=== PATIENT | female | born 1985 | race Caucasian/White ===

== ENCOUNTER → 2018-11-15 | Outpatient (CLI) | payer BC ==
[~2018-11-15] MED LIST: BCP; PRD5T PO
== END ==
LOC: LAB 10:48
PROVIDERS: ATTEND Nurse Practitioner Family
DX: R07.9 Chest pain, unspecified (principal)
CPT/HCPCS: 36415; 84484

== ENCOUNTER 2019-04-30 10:01 | Day surgery (SDC) | payer BC ==
[~2019-04-30] VITALS: Ht 149.9 cm; Wt 73.6 kg
[2019-04-30] VITALS (10 sets, daily range): BP systolic 91–108; BP diastolic 45–73
--- OUTSIDE RECORDS SUMMARY | 2019-04-30 10:16 | XMS REPORT | Continuity of Care Document ---
Author Organization Unknown Address Unknown Phone Unavailable Allergies Active Description Code Type Severity Reaction Onset Reported/Identified Relationship to Patient Clinical Status Yes azithromycin [id number] Drug Allergy Mild NAUSEA/DIARRHEA 07/25/2010 Medications There is no data. Problems Date Dx Coded Attending Type Code Diagnosis Diagnosed By 11/29/2018 VINCENT STERLING APRN Ot R07.9 CHEST PAIN, UNSPECIFIED 12/06/2018 VINCENT STERLING APRN Ot R07.9 CHEST PAIN, UNSPECIFIED 04/17/2019 VINCENT STERLING APRN Ot R07.9 CHEST PAIN, UNSPECIFIED 04/17/2019 VINCENT STERLING APRN Ot R07.9 CHEST PAIN, UNSPECIFIED Procedures There is no data. Results Test Result Range Serum or plasma troponin i.cardiac measu rement (mass/volume) - 11/15/18 11:09 Serum or plasma troponin i.cardiac measurement (mass/v olume) < ng/mL <0.028 Encounters ACCT No. Visit Date/Time Discharge Status Pt. Type Provider Facility Loc./Unit Complaint [id number] 10/20/2018 07:41:46 10/20/2018 23:59:5 9 [facility] Outpatient [id number] 11/15/2018 10:48:00 019 23:59:59 [facility] Outpatient VINCENT STERLING APRN Via [facility] LAB CHEST PAIN
--- OUTSIDE RECORDS SUMMARY | 2019-04-30 10:16 | XMS REPORT | CCD ---
Author Author Zuleima Triplett Organization Martine Baig MD, [facility] Address [address] [place] [address] Phone Care Team Providers Care Residential Solar Sales Consultant Name Role Phone PP Unavailable CCM Unavailable Summary Purpose Interface Exchange Insurance Providers Payer name Policy type / Coverage type Covered democrat ID Effective Begin Date Effective End Date [facility] Insurance [id number] Unknown Unk nown Family history Father Diagnosis Age At Onset Alcoholism Unknown Hypertension Unknown Hyperlipidemia Unknown Sister Diagnosis Age At Onset Depression Unknown kidney disease Unknown Social History Social History Element Codes Description Effective Dates Marital status Unknown M arrjose amie 10/20/2018 Number of children Unknown 1 10/20/2018 Employment Unknown Mauro gore employed endodontic assistant 10/20/[address]: 05191005 Current every day smoker 10/20/2018 Number of years using tobacco Unknown 10 - 20 10/20/2018 Number of cigarettes/day Unknown 20 (One Pack) 10/20/[address]: 162277 Currently drinks alcohol 10/20/2018 Frequency of drinks SNOMED CT: 292924833 1-4 drinks per week 10/20/2018 Allergies, Adverse Reactions, Alerts Substance Reaction Codes Entered Date Inactivated Date Status NO KNOWN DRUG ALLERGIES Unknown 10/20/2018 No Inactive Date Active Past Medical History Illness Codes Condition Status Onset Date Resolved Date Acute upper respirat ory infection, unspecified ICD-9: 465.9 ICD-10: J06.9 Active 10/20/2018 Unknown Dysuria ICD-9: 788.1 ICD-10: R30.0 Active 10/20/2018 Unknown Personal history of gestational diabetes ICD-9: V12.21 ICD-10: Z86.32 Active 10/20/2018 Unknown Rash and other nonsp ecific skin eruption ICD-9: 782.1 ICD-10: R21 Active 10/20/2018 Unknown Problems Condition Codes Effectiv e Dates Condition Status Acute upper respirat ory infection, unspecified ICD-9: 465.9 ICD-10: J06.9 10/20/2018 Active Dysuria ICD-9: 788.1 ICD-10: R30.0 10/20/2018 Active Personal history of gestational diabetes ICD-9: V12.21 ICD-10: Z86.32 10/20/2018 Active Rash and other nonsp ecific skin eruption ICD-9: 782.1 ICD-10: R21 10/20/2018 Active Medications Medication Codes Instruc tions Start Date Stop Date Sta tus Fill Instructions prednisone 20 mg tablet RxNorm: 096578 2 Tablet(s) PO daily 10/23/2018 10/27/2018 Active prednisone 20 mg tablet RxNorm: 016543 2 Tablet(s) PO daily 10/23/2018 10/22/2018 Inactive Keflex 500 mg capsule RxNorm: 590337 1 Capsule(s) PO TID 10/20/2018 10/26/2018 Active betamethasone diprop ionate 0.05 % topical cream RxNorm: 565569 1 Application TOP BID 10/20/2018 11/02/2018 Ac tive Medication Administered No Medication Administered data Immunizations No Immunization data Assessments Condition Codes Effectiv e Dates Dysuria ICD-10: R30.0 ICD-9: 788.1 10/20/2018 Personal history of gestational diabetes ICD-10: Z86.32 ICD-9: V12.21 10/20/2018 Rash and other nonspecific skin eruption ICD-10: R21 ICD-9: 782.1 10/20/2018 Acute upper respiratory infection, unspecified ICD-10: J06.9 ICD-9: 465.9 10/20/2018 Reason For Visit Reason For Visit Effective Dates Notes dysuria 10/20/2018 Results Observation Observation Code Item Item Code Result Date CULTURE, URINE M100 URIN E CULTURE See Note 10/23/2018 Comp Metabolic Lir198 NA 138 mEq/L 10/20/2018 Comp Metabolic Aii376 K 4.3 mEq/L 10/20/2018 Comp Metabolic Pqm130 CL 104 mEq/L 10/20/2018 Comp Metabolic Mcb795 CO2 29.0 mEq/L 10/20/2018 Comp Metabolic Zgy439 AN ION GAP 9 10/20/2018 Comp Metabolic Mlp959 GL UCOSE 88 mg/dL 10/20/2018 Comp Metabolic Zys459 Cr eat 0.7 mg/dL 10/20/2018 Comp Metabolic Ekd727 eG FR 108 ml/min/1.73m2 10/08 Comp Metabolic Blu795 BUN 14 mg/dL 10/20/2018 Comp Metabolic Jgg709 B/ C Ratio 21.2 Ratio 10/20/2018 Comp Metabolic Qxz626 CA LCIUM 9.1 mg/dL 10/20/2018 Comp Metabolic Hmq340 AL K PHOS 57 U/L 10/20/2018 Comp Metabolic Vea333 T(SGOT) 12 U/L 10/20/2018 Comp Metabolic Nss419 AL T(SGPT) 13 U/L 10/20/2018 Comp Metabolic Bvn347 BI LI T 0.4 mg/dL 10/20/2018 Comp Metabolic Zfq871 AL BUMIN 4.3 g/dL 10/20/2018 Comp Metabolic Orn591 TP RO 6.5 g/dL 10/20/2018 Comp Metabolic Jhj417 GL OB 2.2 g/dL 10/20/2018 Comp Metabolic Mmj484 A/ G Ratio 2.0 Ratio 10/20/2018 Comp Metabolic Uuw787 Os mo 276 mOsmo 10/20/2018 %Hba1C Tnv781 % HbA1c 03410-8 5.0 % 10/20/2018 %Hba1C Etd870 Gluc Ave 97 mg/dL 10/20/2018 Tsh Ord6 TSH (3rd IS) 0.84 uIU/mL 10/20/2018 Cbc With Differential Ord2 WBC 12.08 K/ul 10/20/2018 Cbc With Differential Ord2 RBC 4.88 M/ul 10/20/2018 Cbc With Differential Ord2 HGB 15.6 g/dl 10/20/2018 Cbc With Differential Ord2 HCT 45.0 % 10/20/2018 Cbc With Differential Ord2 Neut% 71.9 % 10/20/2018 Cbc With Differential Ord2 MCV 92.2 fl 10/20/2018 Cbc With Differential Ord2 Lymph% 18.3 % 10/20/2018 Cbc With Differential Ord2 MCH 32.0 pg 10/20/2018 Cbc With Differential Ord2 [place]% 8.1 % 10/20/2018 Cbc With Differential Ord2 MCHC 34.7 pg 10/20/2018 Cbc With Differential Ord2 Eos% 1.4 % 10/20/2018 Cbc With Differential Ord2 PLT 351 K/ul 10/20/2018 Cbc With Differential Ord2 Baso% 0.3 % 10/20/2018 Cbc With Differential Ord2 RDW 12.6 % 10/20/2018 Cbc With Differential Ord2 Neut ABS# 8.68 K/ul 10/20/2018 Cbc With Differential Ord2 Lymph ABS# 2.21 K/ul 10/20/2018 Cbc With Differential Ord2 [place] ABS# 1.0 K/ul 10/20/2018 Cbc With Differential Ord2 Eos ABS# 0.2 K/ul 10/20/2018 Cbc With Differential Ord2 Baso ABS# 0.0 K/ul 10/20/2018 Lipid Ord30 CHOL 105 mg/dL 10/20/2018 Lipid Ord30 HDL 41.0 mg/dl 10/20/2018 Lipid Ord30 TRIG 52 mg/dL 10/20/2018 Lipid Ord30 LDL 54 mg/dL 10/20/2018 Lipid Ord30 C/HDL 2.6 Ratio 10/20/2018 Review of Systems System Result Effective Dates Constitutional recent illness 10/20/2018 Constitutional No anorexia 10/20/2018 Constitutional No night sweats 10/20/2018 Constitutional No chills 10/20/2018 Constitutional No malaise 10/20/2018 Constitutional No weight loss 10/20/2018 Constitutional No weight gain 10/20/2018 Constitutional insomnia 10/20/2018 Constitutional No fever 10/20/2018 Constitutional No fatigue 10/20/2018 Constitutional No diaphoresis 10/20/2018 Eyes No eye discharge Eyes No eye erythema Ears/Nose/Throat/Neck nasal allergies 10/20/2018 Ears/Nose/Throat/Neck nasal discharge 10/20/2018 Ears/Nose/Throat/Neck No dizziness 10/20/2018 Ears/Nose/Throat/Neck headache 10/20/2018 Ears/Nose/Throat/Neck No otalgia 10/20/2018 Ears/Nose/Throat/Neck sinus congestion 10/20/2018 Cardiovascular No chest pain/pressure 10/20/2018 Cardiovascular No dyspnea 10/20/2018 Cardiovascular No edema 10/20/2018 Respiratory No productive sputum 10/20/2018 Respiratory cough 2018 Gastrointestinal No abdominal pain 10/20/2018 Gastrointestinal No constipation 10/20/2018 Gastrointestinal No diarrhea 10/20/2018 Genitourinary/Nephrology No dysuria 10/20/2018 Musculoskeletal No joint complaint 10/20/2018 Dermatologic rash 2018 Neurologic No alteration of consciousness 10/20/2018 Psychiatric No depression 10/20/2018 Psychiatric anxiety 10/08 Endocrine dry or coarse skin 10/20/2018 Endocrine polydipsia Endocrine polyuria 10/20 Physical Exam Exam Name System Name It em Name Status Result Effective Dates Notes Full Exam - General 1995 Constitutional general appearance Overall: well developed 10/20/2018 None Full Exam - General 1995 Constitutional general appearance Overall: in no acute distress 10/20/2018 None Full Exam - General 1995 Constitutional general appearance Overall: well nourished 10/20/2018 None Full Exam - General 1995 Eyes conjunctiva/eyelids Overall: conjunctiva clear 10/20/2018 None Full Exam - General 1995 Ears/Nose/Throat otoscopic exam Overall: external auditory canals clear 10/20/2018 None Full Exam - General 1995 Ears/Nose/Throat otoscopic exam Overall: tympanic membranes clear 10/20/2018 None Full Exam - General 1995 Ears/Nose/Throat oral cavity/pharynx/larynx Overall: oral mucosa clear 10/20/2018 None Full Exam - General 1995 Ears/Nose/Throat internal nose Sinus tenderness: left maxillary 10/20/2018 None Full Exam - General 1995 Ears/Nose/Throat internal nose Sinus tenderness: right maxillary 10/20/2018 None Full Exam - General 1994 Respiratory respiratory effort/rhythm Overall: no retractions 10/20/2018 None Full Exam - General 1994 Respiratory respiratory effort/rhythm Overall: normal rate 10/20/2018 None Full Exam - General 1994 Respiratory auscultation Overall: breath sounds clear bilaterally 10/20/2018 None Full Exam - General 1994 Cardiovascular auscultation of heart Overall: regular rate 10/20/2018 None Full Exam - General 1994 Cardiovascular auscultation of heart Overall: normal heart sounds 10/20/2018 None Full Exam - General 1994 Cardiovascular auscultation of heart Overall: no murmurs 10/20/2018 None Full Exam - General 1994 Abdomen abdominal exam Overall: no tenderness 10/20/2018 None Full Exam - General 1994 Abdomen abdominal exam Overall: normal bowel sounds 10/20/2018 None Full Exam - General 1994 Lymphatic neck nodes Overall: shotty lymphadenopathy 10/20/2018 None Full Exam - General 1994 Musculoskeletal gait and station Overall: normal gait 10/20/2018 None Full Exam - General 1994 Musculoskeletal gait and station Overall: normal station 10/20/2018 None Full Exam - General 1994 Psychiatric orientation/consciousness Overall: oriented to person, place and time 10/20/2018 None Full Exam - General 1994 Neurologic gait Overall: no ataxia, no unsteadiness 10/20/2018 None Full Exam - General 1994 Integument inspection of skin Location: right foot 10/20/2018 patch right lateral foot Procedures Procedure Codes Date URINALYSIS NONAUTO W /O SCOPE CPT-4: 14279 10/20/2018 Vital Signs Date Vital 10/20/2018 Blood Pressure 1: 102/68 Code: 8480-6 BMI: 20.9 Code: 59330-2 Heart Rate 1: 90 bpm Height: 5'11" SpO2: 100% Weight: 150 lbs Functional Status No Functional Status data History of Present Illness Symptom Name Status Resu lt Effective Date Notes Quality constant 10/20/2018 None Onset and Resolution o ngoing 10/20/2018 None Onset of Symptom 5 mon ths ago 10/20/2018 None Onset and Resolution s udden in onset 10/20/2018 None Onset of Symptom 3 day s ago 10/20/2018 None Location diffusely 10/20/2018 None Quality aching 10/20/2018 None Quality burning 10/20/2018 None Quality constant 10/20/2018 None Onset and Resolution s udden in onset 10/20/2018 None Limitation on Activities does not limit urination 10/20/2018 None Frequency of Episodes increasing 10/20/2018 None Length of Episodes _ w eeks 10/20/2018 None Significant Medical Conditions recurrent urinary tract infections 10/20/2018 None Triggers no known asso ciated factors 10/20/2018 None Alleviating Factors me dication 10/20/2018 cranberry is helping Pertinent Findings Den ies fever 10/20/2018 None Pertinent Findings Den ies nausea 10/20/2018 None Pertinent Findings curtis yuria 10/20/2018 None Pertinent Findings Den ies vomiting 10/20/2018 None Severity mild 10/20/2018 None Frequency of Episodes increasing 10/20/2018 None Length of Episodes Den ies _ days 10/20/2018 None Significant Medical Conditions allergic rhinitis 10/20/2018 None Triggers Denies no kno wn associated factors 10/20/2018 None Quality Denies acute 10/20/2018 None Location on both sides 10/20/2018 None Pertinent Findings dec reased energy level 10/20/2018 None Advance Directives No Advance Directive data Encounters Encounter Performer Loca tion Codes Date OFFICE VISIT, NEW - LEVEL 3 Diagnosis: Dysuria[ICD10: R30.0] Diagnosis: Rash and other nonspecific skin eruption[ICD10: R21] Diagnosis: Personal history of gestational diabetes[ICD10: Z86.32] Diagnosis: Acute upper respiratory infection, unspecified[ICD10: J06.9] Chaenll Baig MD, [facility] CPT-4: 87289 10/20/2018 Plan of Care Planned Activity Notes C odes Status Date Visit Plan: Dysuria-pt with positiv e urinalysis - culture sent if appropriate. Antibiotic electronically prescribed to pt's pharmacy of choice. Pt to call if symptoms do not improve. Rash -right foot -rx for betame thasone provided and instructed to mix with anti fungal cream and use as directed -call if rash does not resolve or if any worse History of gestational diabetes -check labs including Hgb A1C -patient is also have polydipsia and polyuria URI - Pt advised to increase fluids, vitamin C. Discussed natural and expected course of this diagnosis and need to alert me if symptoms do not follow expected course, or if any worse. RX sent to patient's pharmacy. 10/20/2018 Appointment: Chanell Triplett WPtel: [address] [place], [place] [phone] New Patient 10/20/2018 Patient Education: Patient Medication Summary Completed 10/20/2018 Care Plan: Urine Culture Pending 10/20/2018 Instructions Comment CONTINUE ZYRTEC RECOMMEND FLONASE INSTEAD OF AFRIN . Dysuria-pt with positive urinalysis - culture sent if appropriate. Antibiotic electronically prescribed to pt's pharmacy of choice. Pt to call if symptoms do not improve. Rash -right foot -rx for betamethasone provided and instructed to mix with anti fungal cream and use as directed -call if rash does not resolve or if any worse History of gestational diabetes -check labs including Hgb A1C -patient is also have polydipsia and polyuria URI - Pt advised to increase fluids, vitamin C. Discussed natural and expected course of this diagnosis and need to alert me if symptoms do not follow expected course, or if any worse. RX sent to patient's pharmacy.
--- OUTSIDE RECORDS SUMMARY | 2019-04-30 10:16 | XMS REPORT | CCD ---
Author Author Zuleima Triplett Organization Martine Baig MD, [facility] Address [address] [place] [address] Phone Care Team Providers Care Reading Interventionist Name Role Phone PP Unavailable CCM Unavailable Summary Purpose Interface Exchange Insurance Providers Payer name Policy type / Coverage type Covered republican ID Effective Begin Date Effective End Date [facility] Insurance [id number] Unknown Unk nown Family history Father Diagnosis Age At Onset Alcoholism Unknown Hypertension Unknown Hyperlipidemia Unknown Sister Diagnosis Age At Onset Depression Unknown kidney disease Unknown Social History Social History Element Codes Description Effective Dates Marital status Unknown M arrjose amie 10/20/2018 Number of children Unknown 1 10/20/2018 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/20/[address]: 27852525 Current every day smoker 10/20/2018 Number of years using tobacco Unknown 10 - 20 10/20/2018 Number of cigarettes/day Unknown 20 (One Pack) 10/20/[address]: 903202 Currently drinks alcohol 10/20/2018 Frequency of drinks SNOMED CT: 717584868 1-4 drinks per week 10/20/2018 Allergies, Adverse [...] Date Stop Date Sta tus Fill Instructions Keflex 500 mg capsule RxNorm: 714249 1 Capsule(s) PO TID 10/20/2018 10/26/2018 Active betamethasone diprop ionate 0.05 % topical cream RxNorm: 524363 1 Application TOP BID 10/20/2018 11/02/2018 Ac [...] Observation Code Item Item Code Result Date Cbc With Differential Ord2 WBC 12.08 K/ul [...] 32.0 pg 10/20/2018 Cbc With Differential Ord2 [place]% 8.1 % 10/20/2018 Cbc With Differential Ord2 [...] 2.21 K/ul 10/20/2018 Cbc With Differential Ord2 [place] ABS# 1.0 K/ul 10/20/2018 Cbc With Differential Ord2 Eos ABS# 0.2 K/ul 10/20/2018 Cbc With Differential Ord2 Baso ABS# 0.0 K/ul 10/20/2018 Review of Systems System Result Effective [...] Effective Dates Notes Full Exam - General 1994 Constitutional general appearance Overall: well developed 10/20/2018 None Full Exam - General 1994 Constitutional general appearance Overall: in no acute distress 10/20/2018 None Full Exam - General 1994 Constitutional general appearance Overall: well nourished 10/20/2018 None Full Exam - General 1994 Eyes conjunctiva/eyelids Overall: conjunctiva clear 10/20/2018 None Full Exam - General 1995 Ears/Nose/Throat otoscopic exam Overall: external auditory canals clear 10/20/2018 None Full Exam - General 1995 Ears/Nose/Throat otoscopic exam Overall: tympanic membranes clear 10/20/2018 None Full Exam - General 1994 Ears/Nose/Throat oral cavity/pharynx/larynx Overall: oral mucosa clear 10/20/2018 None Full Exam - General 1994 Ears/Nose/Throat internal nose Sinus tenderness: left maxillary 10/20/2018 None Full Exam - General 1994 Ears/Nose/Throat internal nose Sinus tenderness: right maxillary [...] Date URINALYSIS NONAUTO W /O SCOPE CPT-4: 50431 10/20/2018 Vital Signs Date Vital 10/20/2018 Blood Pressure 1: 102/68 Code: 8480-6 BMI: 20.9 Code: 03285-4 Heart Rate 1: 90 bpm Height: 5'11" [...] Diagnosis: Acute upper respiratory infection, unspecified[ICD10: J06.9] [facility] CPT-4: 61829 10/20/2018 Plan of Care Planned Activity Notes [...] worse. RX sent to patient's pharmacy. 10/20/2018 Patient Education: Patient Medication Summary Completed 10/20/2018 Care Plan: Comp Metabolic Pending 10/20/2018 Care Plan: Tsh Pending 10/20/2018 Care Plan: Lipid Pending 10/20/2018 Care Plan: Urine Culture Pending 10/20/2018 Care Plan: %Hba1C LOIN C : 38966-2 Pending 10/20/2018 Instructions Comment CONTINUE ZYRTEC RECOMMEND [...]
--- OUTSIDE RECORDS SUMMARY | 2019-04-30 10:16 | XMS REPORT | CCD ---
Author Author Zuleima Triplett Organization Martine Baig MD, [facility] Address [address] [place] [address] Phone Care Team Providers Care Glue Drier Operator Name Role Phone PP Unavailable CCM Unavailable Summary Purpose Interface Exchange Insurance Providers Payer name Policy type / Coverage type Covered alliance party ID Effective Begin Date Effective End Date [facility] Insurance [id number] Unknown Unk nown Family history Father Diagnosis Age At Onset Alcoholism Unknown Hypertension Unknown Hyperlipidemia Unknown Sister Diagnosis Age At Onset Depression Unknown kidney disease Unknown Social History Social History Element Codes Description Effective Dates Marital status Unknown M arrjose amie 10/20/2018 Number of children Unknown 1 10/20/2018 Employment 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 10/20/[address]: 63443202 Current every day smoker 10/20/2018 Number of years using tobacco Unknown 10 - 20 10/20/2018 Number of cigarettes/day Unknown 20 (One Pack) 10/20/[address]: 427653 Currently drinks alcohol 10/20/2018 Frequency of drinks SNOMED CT: 164862774 1-4 drinks per week 10/20/2018 Allergies, Adverse [...] Fill Instructions Keflex 500 mg capsule RxNorm: 994984 1 Capsule(s) PO TID 10/20/2018 10/26/2018 Active betamethasone diprop ionate 0.05 % topical cream RxNorm: 439583 1 Application TOP BID 10/20/2018 11/02/2018 Ac [...] Observation Code Item Item Code Result Date Comp Metabolic Arv593 NA 138 mEq/L 10/20/2018 Comp Metabolic Fzj277 K 4.3 mEq/L 10/20/2018 Comp Metabolic Trd396 CL 104 mEq/L 10/20/2018 Comp Metabolic Byz353 CO2 29.0 mEq/L 10/20/2018 Comp Metabolic Akd944 AN ION GAP 9 10/20/2018 Comp Metabolic Yyk648 GL UCOSE 88 mg/dL 10/20/2018 Comp Metabolic Afe158 Cr eat 0.7 mg/dL 10/20/2018 Comp Metabolic Nqe948 eG FR 108 ml/min/1.73m2 10/08 Comp Metabolic Cdg730 BUN 14 mg/dL 10/20/2018 Comp Metabolic Urk142 B/ C Ratio 21.2 Ratio 10/20/2018 Comp Metabolic Hfg174 CA LCIUM 9.1 mg/dL 10/20/2018 Comp Metabolic Zgb378 AL K PHOS 57 U/L 10/20/2018 Comp Metabolic Rpj682 T(SGOT) 12 U/L 10/20/2018 Comp Metabolic Zwy194 AL T(SGPT) 13 U/L 10/20/2018 Comp Metabolic Flw606 BI LI T 0.4 mg/dL 10/20/2018 Comp Metabolic Ddc378 AL BUMIN 4.3 g/dL 10/20/2018 Comp Metabolic Ahl629 TP RO 6.5 g/dL 10/20/2018 Comp Metabolic Fhf242 GL OB 2.2 g/dL 10/20/2018 Comp Metabolic Ynd440 A/ G Ratio 2.0 Ratio 10/20/2018 Comp Metabolic Zlu880 Os mo 276 mOsmo 10/20/2018 %Hba1C Xgk400 % HbA1c 80088-6 5.0 % 10/20/2018 %Hba1C Ipz922 Gluc Ave 97 mg/dL 10/20/2018 Tsh Ord6 [...] 32.0 pg 10/20/2018 Cbc With Differential Ord2 [place]% 8.1 % 10/20/2018 Cbc With Differential Ord2 [...] 2.21 K/ul 10/20/2018 Cbc With Differential Ord2 [place] ABS# 1.0 K/ul 10/20/2018 Cbc With Differential [...] None Full Exam - General 1994 Ears/Nose/Throat otoscopic exam Overall: external auditory canals [...] Date URINALYSIS NONAUTO W /O SCOPE CPT-4: 91589 10/20/2018 Vital Signs Date Vital 10/20/2018 Blood Pressure 1: 102/68 Code: 8480-6 BMI: 20.9 Code: 71052-7 Heart Rate 1: 90 bpm Height: 5'11" [...] unspecified[ICD10: J06.9] [facility] CPT-4: 20770 10/20/2018 Plan of Care Planned Activity Notes [...]
[2019-04-30] MEDS ORDERED: D5 NS 1000 ML IV SOLUTION 0 ML IV ONE (10:22)
[2019-04-30] MEDS ORDERED: D5 LR IV SOLUTION 1,000 ML IV ONE (10:23)
[2019-04-30] MEDS ORDERED: WATER (STERILE) FOR INJECTION 10 ML ONE (10:24)
[2019-04-30] MEDS ORDERED: ceFAZolin INJECTION 1,000 MG ONE (10:24)
[2019-04-30] MEDS ORDERED: ceFAZolin 1,000 MG/SWFI 10 ML IV PUSH IV SCH ×2 (10:32)
[2019-04-30] MEDS ORDERED: D5 LR IV SOLUTION 1,000 ML IV SCH ×2 (10:45→11:33)
[2019-04-30] MEDS ORDERED: fentaNYL INJECTION 100 MCG/2 ML AMP IV PRN (10:45)
[2019-04-30 10:56] LABS: BASOPHILS % (AUTO) 0 % (0-10); EOSINOPHILS # (AUTO) 0.1 10^3/uL (0.0-0.3); EOSINOPHILS % (AUTO) 0 % (0-10); HEMATOCRIT 36 % (35-52); HEMOGLOBIN 12.8 G/DL (11.5-16.0); LYMPHOCYTES # (AUTO) 2.2 X 10^3 (1.0-4.0); LYMPHOCYTES % (AUTO) 15 % (12-44); MEAN CORPUSCULAR HEMOGLOBIN 32 PG (25-34); MEAN CORPUSCULAR HGB CONC 35 G/DL (32-36); MEAN CORPUSCULAR VOLUME 91 FL (80-99); MEAN PLATELET VOLUME 9.3 FL (7.4-10.4); MONOCYTES # (AUTO) 0.7 X 10^3 (0.0-1.0); MONOCYTES % (AUTO) 5 % (0-12); NEUTROPHILS # (AUTO) 11.5 X 10^3 (1.8-7.8); NEUTROPHILS % (AUTO) 80 % (42-75); PLATELET COUNT 313 10^3/uL (130-400); RED CELL DISTRIBUTION WIDTH 12.9 % (10.0-14.5); WHITE BLOOD COUNT 14.5 10^3/uL (4.3-11.0)
[2019-04-30 11:23] LABS: EOSINOPHILS % (MANUAL) 1 %; LYMPHOCYTES % (MANUAL) 21 %; MONOCYTES % (MANUAL) 6 %; NEUTROPHILS % (MANUAL) 65 %; RBC MORPH NORMAL; REACTIVE LYMPHOCYTES 7 %
--- NOTE | 2019-04-30 11:32 | Progress Note-Post Operative ---
Post-Operative Progess Note Surgeon (s)/Maintenance Department Technician (s) Surgeon VICKY SIMMONS MD Maintenance Department Technician: None Pre-Operative Diagnosis Right Bartholin's abscess Post-Operative Diagnosis Same Procedure & Operative Findings Date of Procedure 04/30/19 Procedure Performed/Findings Marsupialization of right Bartholin abscess Anesthesia Type GETA Estimated Blood Loss Estimated blood loss (mL): Minimal Specimens/Packing Specimens Removed Culture abscess cavity Packing: None VICKY SIMMONS MD Apr 30, 2019 11:32
--- NOTE | 2019-04-30 11:32 | Progress Note-Pre Operative ---
Pre-Operative Progress Note H&P Reviewed The H&P was reviewed, patient examined and no changes noted. Date Seen by Provider: Apr 30, 2019 Time Seen by Provider: 11:32 Date H&P Reviewed: Apr 30, 2019 Time H&P Reviewed: 11:32 Pre-Operative Diagnosis: Right Bartholin's abscess VICKY SIMMONS MD Apr 30, 2019 11:32
[2019-04-30] MEDS ORDERED: OXYC1TAB87 PO (11:34)
--- NOTE | 2019-04-30 11:35 | Discharge Inst-Surgical ---
Discharge Inst-Surgical Depart Medication/Instructions New, Converted or Re-Newed RX: RX on Chart Consults/Follow Up Patient Instructions: As directed Orders & Referrals Follow Up Appt: Call to make follow up appt. for patient in 2 weeks. Activity: Rest for 24 hours, than as tolerated. Diet: As tolerated-Clear Liquids only if nauseated. may shower or tub bathe as desired. No driving for 24 hours, no alcoholic beverages for 24 hours, and nothing per vagina (no tampons, douching, or intercoUrse) for 2 weeks. Patient to return to the clinic as soon as possible for: Temperature greater than 101F, Severe Pain, Foul discharge from incision or vagina, Excessive Bleeding (more than a period). Activity Activity as Tolerated: Yes Diet Discharge Diet: No Restrictions VICKY SIMMONS MD Apr 30, 2019 11:35
[2019-04-30] MEDS ORDERED: ONDANSETRON 4 MG/2 ML (SDV) Z0FRAN IVP PRN ×2 (11:45→13:30)
[2019-04-30] MEDS ORDERED: KETOROLAC 30 MG/ML VIAL IVP ONE (11:45)
[2019-04-30] MEDS ORDERED: MEPERIDINE (DEMEROL) INJ 100 MG/ML IM ONE (11:45)
[2019-04-30] MEDS ORDERED: HYDROcodone/APAP 10 MG/325 MG (LORTAB) TAB PO PRN (11:45)
[2019-04-30] MEDS ORDERED: PROMETHAZINE INJ 25 MG/ML (PHENERGAN) AMP IM ONE (11:45)
[2019-04-30] MEDS ORDERED: LACTATED RINGERS 1,000 ML IV PRN (12:08)
[2019-04-30] MEDS: LACTATED RINGERS 1,000 ML IV SCH ×3 (12:13→14:22)
[2019-04-30] MEDS ORDERED: PREN-142 PO (12:35)
[2019-04-30] MEDS ORDERED: ONDANSETRON 4 MG/2 ML (SDV) Z0FRAN ONE (13:01)
[2019-04-30] MEDS ORDERED: morphine INJ 10 MG/ML 1ML (SYR OR VIAL) IVP ONE (13:30)
[2019-04-30] MEDS ORDERED: KETOROLAC 30 MG/ML VIAL ONE (13:47)
[2019-04-30] MEDS ORDERED: CEPH-507 PO (14:05)
--- NOTE | 2019-04-30 14:10 | NUR ---
TO AMB SURG FROM PAR PER CART. ALERT, DENIES COMPLAINTS, ABLE TO MOVE FEET SLIGHTLY AND STATES FEET FEEL "TINGLY". V-PAD IN PLACE AT [facility], PEA SIZED BLOODY DRAINAGE ON PAD. PO FLUIDS PROVIDED.
--- NOTE | 2019-04-30 14:39 | OPERATIVE REPORT ---
DATE OF SERVICE: 04/30/2019 PREOPERATIVE DIAGNOSIS: Right Bartholin abscess. POSTOPERATIVE DIAGNOSIS: Right Bartholin abscess. OPERATIVE PROCEDURE: Marsupialization of right Bartholin abscess. OPERATIVE DESCRIPTION: With the patient in supine position under satisfactory spinal analgesia, she was repositioned in the dorsal lithotomy position in the [facility] cane stirrups and prepped and draped in the usual fashion for vaginal surgery. The patient had a large cystic mass in the inferior right labia majora consistent with a Bartholin abscess. It was almost pointing just outside the hymenal ring at the 7 o'clock position. The patient having been prepped and draped. Sutures of 2-0 Vicryl Rapide was placed into and out of the cyst cavity. An incision was made in between the two sutures and the mid portion of the procedure was brought out through the incision cut in the midline tagged in the 4 cardinal locations of the cyst to the skin. The cyst cavity was cultured for aerobes and anaerobes and then irrigated until clean. There was minimal bleeding at this point. The cyst cavity wall was then sutured to the skin between each of the four initial sutures. There is a 7 o'clock suture pulled through the skin, it was replaced with an additional interrupted suture. With all the sutures tied the marsupialization was completed. It was irrigated at final time. There was no bleeding. The swelling was essentially completely resolved with drainage of the cyst. The patient was transferred to the recovery room in stable condition with plans for discharge home PAR. Sponge and needle counts were correct. Blood loss was minimal. The patient tolerated the procedure very well. Job ID: [id number] DocumentID: [id number] Dictated Date: 04/30/2019 13:20:09 Vp Date: 04/30/2019 14:39:08 Dictated By: VICKY SIMMONS MD
--- NOTE | 2019-04-30 14:40 | NUR ---
REPORTS HAVING MORE FEELING IN LEGS, IS ABLE TO DRAW LEGS UP SOME IN BED. DENIES COMPLAINTS.
--- NOTE | 2019-04-30 15:30 | NUR ---
STATES SHE HAS FEELING THROUGHOUT LEGS AND IS ABLE TO FEEL TOUCH AT ALL POINTS FROM FEET TO BUTTOCKS. ASSISTED TO SIT ON SIDE OF BED, THEN STAND. STEADY WHEN UP AND CAN RAISE UP ON TIPTOES. ASSIST X2 TO AMB TO BR, GAIT STEADY, VOIDED WITHOUT PROBLEM. ASSIST BACK TO ROOM. REQUESTS DISMISSAL. SCANT AMOUNT OF DULL RED BLOODY DRAINAGE ON V-PAD.
--- NOTE | 2019-05-01 10:14 | Anesthesia-Regional Post-Op ---
Regional Patient Condition Mental Status: Alert, Oriented x3 Circulation: Same as Pre-Op Headache: Absent Sensation: Full Recovery Motor Block: Absent Post Op Complications Complications None Follow Up Care/Instructions Patient Instructions None needed. Anesthesia/Patient Condition Patient is doing well, no complaints, stable vital signs, no apparent adverse anesthesia problems. No complications reported per nursing. STACI STAPLETON CRNA May 01, 2019 10:14
== END 2019-04-30 15:50 | disposition home or self-care (01) ==
LOC: SDC 10:01
PROVIDERS: ATTEND Obstetrics & Gynecology
DX: O99.89 Other specified diseases and conditions complicating pregnancy, childbirth and the puerperium (principal); N75.1 Abscess of Bartholin's gland; Z11.2 Encounter for screening for other bacterial diseases; K21.9 Gastro-esophageal reflux disease without esophagitis; Z87.891 Personal history of nicotine dependence; Z3A.20 20 weeks gestation of pregnancy
CPT/HCPCS: 36415; 85007; 85027; 87070; 87075; 87076; 87081; 87205

== ENCOUNTER → 2019-06-27 | Outpatient (CLI) | payer BC ==
[~2019-06-27] MED LIST changes: +CEPH-507 PO; +OXYC1TAB87 PO; +PREN-142 PO
== END ==
LOC: WSo 16:46
PROVIDERS: ATTEND Obstetrics & Gynecology
DX: Z31.82 Encounter for Rh incompatibility status (principal)

== ENCOUNTER 2019-09-03 09:29 | Inpatient (IN) | payer BC ==
[2019-09-03] VITALS (57 sets, daily range): BP systolic 93–123; BP diastolic 50–80
[~2019-09-03] VITALS: Ht 149.9 cm; Wt 75.2 kg
--- NOTE | 2019-09-03 09:22 | NUR ---
CARLEY MONTERO presented to unit via amb from home, with c/o C/O PRESSURE. CARLEY MONTERO weighed, gowned, voided, and to bed. EFHM and TOCO applied, VS taken. CARLEY MONTERO oriented to bed controls, call light, TV, heat, and A/C controls.
--- NOTE | 2019-09-03 10:15 | NUR ---
DR. SIMMONS NOTIFIED OF PT'S ARRIVAL ,CTX PATTERN, FHR TRACING, CERVICAL EXAM, AND VS. ORDERS RO RECHECK IN 1 HOUR.
--- NOTE | 2019-09-03 11:48 | NUR ---
DR. SIMMONS NOTIFIED OF NO CHANGE IN CERVIX AND CTX PATTERN OF Q 4-5 MIN. PT UNAWARE OF MAJORITY OF CTXS.
[2019-09-03] MEDS ORDERED: D5 LR IV SOLUTION 1,000 ML IV SCH (12:30)
[2019-09-03] MEDS ORDERED: D5 LR IV SOLUTION 1,000 ML IV ONE (12:32)
[2019-09-03 13:23] LABS: BASOPHILS % (AUTO) 0 % (0-10); EOSINOPHILS # (AUTO) 0.2 10^3/uL (0.0-0.3); EOSINOPHILS % (AUTO) 1 % (0-10); HEMATOCRIT 36 % (35-52); HEMOGLOBIN 12.7 G/DL (11.5-16.0); LYMPHOCYTES # (AUTO) 2.7 X 10^3 (1.0-4.0); LYMPHOCYTES % (AUTO) 23 % (12-44); MEAN CORPUSCULAR HEMOGLOBIN 33 PG (25-34); MEAN CORPUSCULAR HGB CONC 35 G/DL (32-36); MEAN CORPUSCULAR VOLUME 94 FL (80-99); MEAN PLATELET VOLUME 8.9 FL (7.4-10.4); MONOCYTES # (AUTO) 0.7 X 10^3 (0.0-1.0); MONOCYTES % (AUTO) 6 % (0-12); NEUTROPHILS % (AUTO) 69 % (42-75); PLATELET COUNT 315 10^3/uL (130-400); RED CELL DISTRIBUTION WIDTH 13.4 % (10.0-14.5); WHITE BLOOD COUNT 11.6 10^3/uL (4.3-11.0)
[2019-09-03] MEDS ORDERED: OXYTOCIN PRE-MIX DRIP 500 ML IV SCH ×2 (13:51→22:40)
[2019-09-03] MEDS: D5 LR IV SOLUTION 1,000 ML IV SCH (13:56)
[2019-09-03] MEDS ORDERED: CATHETER FLUSH 10 ML SYR IV SCH (14:00)
[2019-09-03] MEDS ORDERED: fentaNYL 2 mcg/ml BUPIVA 0.125 100 ML ONE (14:41)
[2019-09-03] MEDS ORDERED: BUPIVACAINE 0.25% 30 ML (SENSORCAINE) VIAL ONE (15:00)
[2019-09-03] MEDS ORDERED: LIDOCAINE PF 2% 5 ML (XYLOCAINE) VIAL ONE (15:00)
[2019-09-03] MEDS ORDERED: fentaNYL INJECTION 100 MCG/2 ML AMP ONE (15:00)
[2019-09-03] MEDS ORDERED: LACTATED RINGERS 1,000 ML IV ONE ×2 (15:08)
[2019-09-03] MEDS ORDERED: EPIDURAL (fentaNYL 2 MCG/ML BUPIVA 0.125%)100 ML BAG EPI PRN (15:15)
[2019-09-03] MEDS ORDERED: ONDANSETRON 4 MG/2 ML (SDV) Z0FRAN IV PRN (15:15)
[2019-09-03] MEDS ORDERED: NALOXONE 0.4 MG/ML 1 ML (NARCAN) VIAL IV PRN (15:15)
[2019-09-03] MEDS ORDERED: LACTATED RINGERS 1,000 ML IV SCH (15:15)
--- OUTSIDE RECORDS SUMMARY | 2019-09-03 16:38 | XMS REPORT | Continuity of Care Document ---
Author Organization Unknown Address Unknown Phone Unavailable Allergies Active Description Code Type Severity Reaction Onset Reported/Identified Relationship to Patient Clinical Status Yes azithromycin [id number] Drug Allergy Mild NAUSEA/DIARRHEA 07/25/2010 Yes No Known Drug Allergies [id number] Drug Allergy Unknown N/A 09/03/2019 Medications There is no data. Problems Date Dx Coded Attending Type Code Diagnosis Diagnosed By 11/29/2018 VINCENT STERLING APRN Ot R07.9 CHEST PAIN, UNSPECIFIED 12/06/2018 VINCENT STERLING APRN Ot R07.9 CHEST PAIN, UNSPECIFIED 04/17/2019 VINCENT STERLING APRN Ot R07.9 CHEST PAIN, UNSPECIFIED 04/17/2019 VINCENT STERLING APRN Ot R07.9 CHEST PAIN, UNSPECIFIED 04/30/2019 VICKY SIMMONS MD, Ot K21.9 GASTRO-ESOPHAGEAL REFLUX DISEASE WITHOUT 04/30/2019 VICKY SIMMONS MD, Ot N75.1 ABSCESS OF BARTHOLIN'S GLAND 04/30/2019 VICKY SIMMONS MD, Ot O99.89 OT DISEASES AND CONDITIONS COMPL PREG/C 04/30/2019 VICKY SIMMONS MD, Ot Z11.2 ENCOUNTER FOR SCREENING FOR OTHER BACTER 04/30/2019 VICKY SIMMONS MD, Ot Z3A.20 20 WEEKS GESTATION OF 04/30/2019 VICKY SIMMONS MD, Ot Z87.891 PERSONAL HISTORY OF NICOTINE DEPENDENCE 05/02/2019 VICKY SIMMONS MD, Ot K21.9 GASTRO-ESOPHAGEAL REFLUX DISEASE WITHOUT 05/02/2019 VICKY SIMMONS MD, Ot N75.1 ABSCESS OF BARTHOLIN'S GLAND 05/02/2019 VICKY SIMMONS MD, Ot O99.89 OT DISEASES AND CONDITIONS COMPL PREG/C 05/02/2019 VICKY SIMMONS MD Ot Z11.2 ENCOUNTER FOR SCREENING FOR OTHER BACTER 05/02/2019 VICKY SIMMONS MD, Ot Z3A.20 20 WEEKS GESTATION OF 05/02/2019 VICKY SIMMONS MD, Ot Z87.891 PERSONAL HISTORY OF NICOTINE DEPENDENCE 06/28/2019 VICKY SIMMONS MD, Ot Z31.82 ENCOUNTER FOR RH INCOMPATIBILITY STATUS 06/28/2019 VICKY SIMMONS MD, Ot Z31.82 ENCOUNTER FOR RH INCOMPATIBILITY STATUS 08/16/2019 VICKY SIMMONS MD, Ot Z31.82 ENCOUNTER FOR RH INCOMPATIBILITY STATUS Procedures There is no data. Results Test Result Range Serum or plasma troponin i.cardiac measu rement (mass/volume) - 11/15/18 11:09 Serum or plasma troponin i.cardiac measurement (mass/v olume) < ng/mL <0.028 Methicillin resistant Staphylococcus aur eus (MRSA) screening culture - 04/30/19 10:37 Methicillin resistant Staphylococcus aureus (MRSA) scr eening culture NEG NRG Complete blood count (CBC) with automate d white blood cell (WBC) differential - 04/30/19 10:43 Blood leukocytes automated count (number/volume) 14.5 10*3/uL 4.3-11.0 Blood erythrocytes automated count (number/volume) 4.01 10*6/uL 4.35-5.85 Venous blood hemoglobin measurement (mass/volume) 12.8 g/dL 11.5-16.0 Blood hematocrit (volume fraction) 36 % 35-52 Automated erythrocyte mean corpuscular volume 91 [ foz_us] 80-99 Automated erythrocyte mean corpuscular h emoglobin (mass per erythrocyte) 32 pg 25-34 Automated erythrocyte mean corpuscular h emoglobin concentration measurement (mass/volume) 35 g/dL 32-36 Automated erythrocyte distribution width ratio 12. 9 % 10.0- 14.5 Automated blood platelet count (count/volume) 313 10*3/uL 130-400 Automated blood platelet mean volume measurement 9.3 [foz_us] 7.4-10.4 Automated blood neutrophils/100 leukocytes 80 % 42-75 Automated blood lymphocytes/100 leukocytes 15 % 12-44 Blood monocytes/100 leukocytes 5 % 0-12 Automated blood eosinophils/100 leukocytes 0 % 0-10 Automated blood basophils/100 leukocytes 0 % 0-10 Blood neutrophils automated count (number/volume) 11.5 10*3 1.8-7.8 Blood lymphocytes automated count (number/volume) 2.2 10*3 1.0-4.0 Blood monocytes automated count (number/volume) 0. 7 10*3 0.0-1.0 Automated eosinophil count 0.1 10*3/uL 0 .0-0.3 Automated blood basophil count (count/volume) 0.0 10*3/uL 0.0-0.1 Manual absolute plasma cell count - 04/08 04/26 10:43 Blood monocytes/100 leukocytes 6 % NRG Manual blood segmented neutrophils/100 leukocytes 65 % NRG Manual blood lymphocytes/100 leukocytes 21 % NRG Manual eosinophils/100 leukocytes in nose 1 % NRG Blood lymphocytes variant/100 leukocytes 7 % NRG Blood erythrocyte morphology finding identification NORMAL NRG Bacteria identification in isolate by an aerobe culture - 04/30/19 13:10 FREE TEXT EXTERNAL BETA LACTAMASE POSITIVE NRG QUANTITY OF GROWTH Many NRG Bacteria identification in isolate by anaerobe culture [id number] NRG Gram stain microscopy - 04/30/19 13:10 Gram stain microscopy Mixed Bacterial Shaye NRG Bacteria identification in wound by cult ure - 04/30/19 13:10 Bacteria identification in wound by culture [id number] NRG QUANTITY OF GROWTH FEW NRG SUSCEPTIBILITY NO SUSCEPTIBILITY PERFORMED NRG RH IMMUNE GLOBULIN RHOPHYLAC - 06/27/19 17:12 RH IMMUNE GLOBULIN RHOPHYLAC PRSMD TRFSD 06/27/19 1727 NRG WRISTBAND NUMBER - 06/27/19 17:12 WRISTBAND NUMBER [id number] NRG Rh immune globulin screen - 06/27/19 17: 12 Rh immune globulin screen 12/25/20 300ug NRG Lot number - 06/27/19 17:12 Lot number [id number] NRG Complete blood count (CBC) with automate d white blood cell (WBC) differential - 09/03/19 13:05 Blood leukocytes automated count (number/volume) 11.6 10*3/uL 4.3-11.0 Blood erythrocytes automated count (number/volume) 3.85 10*6/uL 4.35-5.85 Venous blood hemoglobin measurement (mass/volume) 12.7 g/dL 11.5-16.0 Blood hematocrit (volume fraction) 36 % 35-52 Automated erythrocyte mean corpuscular volume 94 [ foz_us] 80-99 Automated erythrocyte mean corpuscular h emoglobin (mass per erythrocyte) 33 pg 25-34 Automated erythrocyte mean corpuscular h emoglobin concentration measurement (mass/volume) 35 g/dL 32-36 Automated erythrocyte distribution width ratio 13. 4 % 10.0- 14.5 Automated blood platelet count (count/volume) 315 10*3/uL 130-400 Automated blood platelet mean volume measurement 8.9 [foz_us] 7.4-10.4 Automated blood neutrophils/100 leukocytes 69 % 42-75 Automated blood lymphocytes/100 leukocytes 23 % 12-44 Blood monocytes/100 leukocytes 6 % 0-12 Automated blood eosinophils/100 leukocytes 1 % 0-10 Automated blood basophils/100 leukocytes 0 % 0-10 Blood neutrophils automated count (number/volume) 8.0 10*3 1.8-7.8 Blood lymphocytes automated count (number/volume) 2.7 10*3 1.0-4.0 Blood monocytes automated count (number/volume) 0. 7 10*3 0.0-1.0 Automated eosinophil count 0.2 10*3/uL 0 .0-0.3 Automated blood basophil count (count/volume) 0.0 10*3/uL 0.0-0.1 Serum or plasma glucose measurement (mas s/volume) - 09/03/19 13:05 Serum or plasma glucose measurement (mass/volume) 74 mg/dL 70-105 Blood type T Indirect antibody screen pa delfino - 09/03/19 13:05 WRISTBAND NUMBER [id number] NRG ABO+Rh group ON NRG Blood group antibody screen NEGATIVE NR G Encounters ACCT No. Visit Date/Time Discharge Status Pt. Type Provider Facility Loc./Unit Complaint [id number] 10/20/2018 07:41:46 10/20/2018 23:59:5 9 CLS Outpatient [id number] 06/27/2019 16:46:00 23:59:59 CLS Outpatient VICKY SIMMONS MD [facility] WSo RH NEGATIVE [id number] 04/30/2019 10:01:00 020 15:50:00 DIS Outpatient VICKY SIMMONS MD [facility] SDC BARTHOLIN CYST [id number] 11/15/2018 10:48:00 019 23:59:59 CLS Outpatient VINCENT STERLING APRN [facility] LAB CHEST PAIN [id number] 09/06/2019 07:00:00 P EN Preadmit VICKY SIMMONS MD INDUCTION [id number] 09/03/2019 13:46:[address] Inpatient VICKY SIMMONS MD [facility] LDRP LABOR
[2019-09-03] MEDS ORDERED: LIDOCAINE/EPI 2% 1:200,00 (XYLOCAINE) 10 ML VIAL ONE (19:14)
--- NOTE | 2019-09-03 19:14 | NUR ---
DR. SIMMONS CALLED TO CHECK ON PT. UPDATE GIVEN. OF CERVICAL EXAM OF 4 CM, POSITION CHANGED WITH PEANUT BALL, AND OXYTOCIN AT 16 MLS/HR/ IVPB/PUMP.
--- NOTE | 2019-09-03 22:40 | History & Physical ---
History and Physical Date Seen by Provider: Sep 03, 2019 Time Seen by Provider: 12:00 This patient is a 33-year-old 2 para 1 white female with an EDC of who presented in labor. She denied rupture membranes or bleeding. She was having contractions every 2 minutes and over a period of observation she changed her cervix from closed to between 2 and 3 cm. At that point she was admitted and amniotomy was performed and she labored with augmentation of Pitocin. Patient's was complicated by gestational diabetes type AI. Patient had good control of her blood sugars with diet only. She was allowed an epidural. Her GBS culture had been negative after 35 weeks gestation. Allergies are none Medications are vitamins Medical social and surgical histories are per the antepartum record HEENT exam is normal Neck is supple no lymphadenopathy no thyromegaly Abdomen is gravid and soft nontender nondistended Extremities show no clubbing cyanosis. There is no Homans sign. Pelvic exam is noted above Assessment and plan 38+ week gestation admitted in spontaneous labor. Anticipation is for vaginal delivery 38+ week in labor Allergies and Home Medications Allergies Coded Allergies: No Known Drug Allergies (Unverified , 09/03/19) Home Medications Vit No.124/Iron/FA 1 Each Tablet, 1 EACH PO DAILY, (Reported) Patient Home Medication List Home Medication List Reviewed: Yes Clinical Quality Measures DVT/VTE Risk/Contraindication: Risk Factor Score Per Nursin RFS Level Per Nursing on Admit: 1=Low/No VTE PPX VICKY SIMMONS MD Sep 03, 2019 22:40
[2019-09-03] MEDS ORDERED: IBUP-1780 PO (22:44)
[2019-09-03] MEDS ORDERED: DOCU-143 PO (22:44)
--- NOTE | 2019-09-03 22:44 | Discharge Inst-Surgical ---
Discharge Inst-Surgical Depart Medication/Instructions New, Converted or Re-Newed RX: RX on Chart Consults/Follow Up Patient Instructions: As directed Orders & Referrals Follow Up Appt: Call to make follow up appt. for patient in 4 weeks. Activity Per routine post vaginal delivery instructions. Please call in RX to patient pharmacy. Diet as tolerated Patient may shower or tub bathe as desired. Activity Activity as Tolerated: No Diet Discharge Diet: No Restrictions VICKY SIMMONS MD Sep 03, 2019 22:44
[2019-09-03] MEDS ORDERED: BENZOCAINE/MENTHOL (DERMOPLAST) 60 ML CAN TP PRN (22:45)
[2019-09-03] MEDS ORDERED: oxyCODONE/APAP 5/325MG (PERCOCET 5) TABLET PO PRN (22:45)
[2019-09-03] MEDS ORDERED: TETANUS,DIPTH,PERTUSS P/F (BOOSTRIX) 0.5 ML VIAL IM ONE (22:45)
[2019-09-03] MEDS ORDERED: KETOROLAC 30 MG/ML VIAL IVP SCH (22:45)
[2019-09-03] MEDS ORDERED: ONDANSETRON 4 MG/2 ML (SDV) Z0FRAN IVP PRN (22:45)
[2019-09-03] MEDS ORDERED: MEASLES,MUMPS,RUBELLA 1 EA INJ SC ONE (22:45)
[2019-09-04] VITALS (9 sets, daily range): BP systolic 100–123; BP diastolic 57–74
--- NOTE | 2019-09-04 00:25 | OPERATIVE REPORT ---
DATE OF SERVICE: 09/03/2019 DELIVERY NOTE The patient delivered by term spontaneous vaginal delivery, a viable female infant with Apgars of 8 and 9 at 1 and 5 minutes respectively, weight 6 pounds. Cord blood pH of 7.29 and a time of 2223. The infant was delivered over an intact perineum under epidural analgesia. There was a single nuchal cord that was easily released after delivery of the head. The delivery was completed atraumatically. The was bulb suctioned and stimulated and dried. When the pulse disappeared in the umbilical cord, the umbilical cord was doubly clamped, father cut the cord, the baby was passed to mom's abdomen. Cord bloods were obtained. The placenta delivered fairly promptly spontaneously Oliva. It was normal with a 3-vessel cord. It was sent to pathology due to the patient's gestational diabetes. The cervix, rectum, vagina and perineum were examined and found intact. Estimated blood loss was around 150 mL. Sponge and needle counts were correct on completion of delivery and the post-delivery inspection. The patient remained in the LDR for recovery. The baby remained in the room with the mom. Job ID: [id number] DocumentID: [id number] Dictated Date: 09/03/2019 22:47:15 Freight Shipping Agent Date: 09/04/2019 00:24:47 Dictated By: VICKY SIMMONS MD MTDD
--- NOTE | 2019-09-04 01:30 | NUR ---
Epidural cath removed, cath tip in tact, Pt assisted standby to bathroom for pericare, first void since delivery, light mariusz urine noted in toilet, pads changed, and transfer to pp unit via wc abd noted time. oriented to call system and surroundings, no ss distress noted, needs denied, see emar for further treatments.
[2019-09-04] MEDS: D5 LR IV SOLUTION 1,000 ML IV SCH (01:44)
--- NOTE | 2019-09-04 07:48 | Progress Note ---
Standard Progress Note Progress Notes/Assess & Plan Date Seen by a Provider: Sep 04, 2019 Time Seen by a Provider: 07:47 Progress/Assessment & Plan This patient is without complaint. She is ambulating, voiding, tolerating oral intake well has good pain control. Vital Signs Date Time Temp Pulse Resp B/P (MAP) Pulse Ox O2 Delivery O2 Flow Rate FiO2 09/04/19 01:30 98 18 123/66 (85) 09/04/19 01:00 85 18 101/57 (72) 09/04/19 00:30 78 18 107/64 (78) 09/04/19 00:05 86 18 111/74 (86) 09/04/19 00:00 75 18 104/64 (77) 09/03/19 23:45 83 18 104/65 (78) 09/03/19 23:30 36.8 75 18 97/61 (73) 09/03/19 23:15 36.8 80 18 102/57 (72) 09/03/19 23:00 37.0 87 18 112/57 (75) 09/03/19 22:45 36.6 18 09/03/19 22:30 37.0 18 09/03/19 22:23 36.8 100 18 100 Non Rebreather 15.00 09/03/19 22:15 100 18 123/80 (94) 99 Non Rebreather 15.00 09/03/19 22:00 98 18 106/59 (75) 99 Non Rebreather 15.00 09/03/19 21:45 77 18 102/68 (79) 98 Room Air 09/03/19 21:30 37.0 84 18 107/71 (83) 99 Room Air 09/03/19 21:15 76 18 107/72 (84) 99 Room Air 09/03/19 21:00 76 18 107/72 (84) 99 Room Air 09/03/19 20:45 81 18 113/75 (88) 98 Room Air 09/03/19 20:30 82 18 111/72 (85) 99 Room Air 09/03/19 20:15 86 18 111/76 (88) 99 Room Air 09/03/19 20:00 85 18 100/58 (72) 96 Room Air 09/03/19 19:45 88 18 98/55 (69) 98 Room Air 09/03/19 19:30 87 18 96/55 (69) 99 Room Air 09/03/19 19:15 81 18 98/58 (71) 99 Room Air 09/03/19 19:00 88 18 102/65 (77) 99 Room Air 09/03/19 18:45 78 18 104/66 (79) 98 Room Air 09/03/19 18:30 82 18 105/66 (79) 99 Room Air 09/03/19 18:15 83 18 111/70 (84) 99 Room Air 09/03/19 18:00 76 18 99/65 (76) 98 Room Air 09/03/19 17:45 36.6 80 18 100/55 (70) 98 Room Air 09/03/19 17:30 82 18 93/55 (68) 97 Room Air 09/03/19 17:15 74 18 103/59 (74) 98 Room Air 09/03/19 17:00 78 18 94/50 (65) 97 Room Air 09/03/19 16:45 83 18 93/56 (68) 97 Room Air 09/03/19 16:30 88 18 103/58 (73) 97 Room Air 09/03/19 16:20 86 18 106/56 (73) 98 Room Air 09/03/19 16:15 86 18 99/56 (70) 97 Room Air 09/03/19 16:10 85 18 95/59 (71) 97 Room Air 09/03/19 16:05 91 18 99/61 (74) 97 Room Air 09/03/19 11:06 36.5 90 18 97 Room Air 09/03/19 10:25 90 18 103/63 (76) Room Air 09/03/19 09:35 36.5 95 18 97 Room Air 09/03/19 09:29 36.5 95 18 110/62 (78) 97 Room Air I & O 09/04/19 06:59 Intake Total 2000 ml Balance 2000 ml Vital signs are stable. Patient is afebrile. The abdomen is benign. Fundus is firm below the umbilicus and nontender. Extreme show clubbing or cyanosis. There is no Homans sign. Assessment and plan day number 1 status post term spontaneous vaginal delivery at 38 weeks gestation. Patient is doing well will have routine convalescence care today and likely discharge home tomorrow Final Diagnosis 38 week spontaneous vaginal delivery VICKY SIMMONS MD Sep 04, 2019 07:48
[2019-09-04] MEDS ORDERED: IBUPROFEN 800 MG (MOTRIN) TAB PO ONE ×2 (07:56→15:12)
--- NOTE | 2019-09-04 09:00 | NUR ---
A.M. ASSESSMENT COMPLETED. VSS. CARING FOR IN ROOM. STATES BREASTFED WELL AT 0800.
--- NOTE | 2019-09-04 09:21 | Anesthesia-Regional Post-Op ---
Regional Patient Condition Mental Status: Alert, Oriented x3 Circulation: Same as Pre-Op Headache: Absent Sensation: Full Recovery Motor Block: Absent Post Op Complications Complications None Follow Up Care/Instructions Patient Instructions None needed. Anesthesia/Patient Condition Patient is doing well, no complaints, stable vital signs, no apparent adverse anesthesia problems. No complications reported per nursing. STACI STAPLETON CRNA Sep 04, 2019 09:21
[2019-09-04] MEDS: DOCUSATE SODIUM 100 MG (COLACE) CAP PO SCH ×2 (09:36→21:30)
[2019-09-04] MEDS ORDERED: IBUPROFEN 800 MG (MOTRIN) TAB PO SCH (09:45)
--- NOTE | 2019-09-04 10:30 | NUR ---
CONTINUES TO CARE FOR . GOOD INTERACTION NOTED.
--- NOTE | 2019-09-04 12:30 | NUR ---
VSS. TRYING TO GET TO BREASTFEED. WILL HAVE COME IN IF CAN'T GET RESULTS.
--- NOTE | 2019-09-04 13:15 | NUR ---
EATING STORK MEAL.
--- NOTE | 2019-09-04 13:45 | NUR ---
TO ROOM TO MICKEY.
--- NOTE | 2019-09-04 15:06 | NUR ---
TDAP GIVEN IM IN LEFT DELTOID. SITE CLEAR.
--- NOTE | 2019-09-04 15:12 | NUR ---
MMR GIVEN SUBQ IN RIGHT UPPER ARM. SITE CLEAR.
[2019-09-04] MEDS: IBUPROFEN 800 MG (MOTRIN) TAB PO SCH ×2 (16:08→21:30)
--- NOTE | 2019-09-04 17:30 | NUR ---
STATES WELL NOW. MOM PLEASED.
[2019-09-05 03:39] VITALS: BP 106/68
[2019-09-05] MEDS: IBUPROFEN 800 MG (MOTRIN) TAB PO SCH ×2 (03:39→08:37)
--- NOTE | 2019-09-05 07:54 | Progress Note ---
Standard Progress Note Progress Notes/Assess & Plan Date Seen by a Provider: Sep 05, 2019 Time Seen by a Provider: 07:53 Progress/Assessment & Plan This patient is without complaint. She is ambulating, voiding, tolerating oral intake well has good pain control. Vital Signs Date Time Temp Pulse Resp B/P (MAP) Pulse Ox O2 Delivery O2 Flow Rate FiO2 09/04/19 01:30 98 18 123/66 (85) 09/04/19 01:00 85 18 101/57 (72) 09/04/19 00:30 78 18 107/64 (78) 09/04/19 00:05 86 18 111/74 (86) 09/04/19 00:00 75 18 104/64 (77) 09/03/19 23:45 83 18 104/65 (78) 09/03/19 23:30 36.8 75 18 97/61 (73) 09/03/19 23:15 36.8 80 18 102/57 (72) 09/03/19 23:00 37.0 87 18 112/57 (75) 09/03/19 22:45 36.6 18 09/03/19 22:30 37.0 18 09/03/19 22:23 36.8 100 18 100 Non Rebreather 15.00 09/03/19 22:15 100 18 123/80 (94) 99 Non Rebreather 15.00 09/03/19 22:00 98 18 106/59 (75) 99 Non Rebreather 15.00 09/03/19 21:45 77 18 102/68 (79) 98 Room Air 09/03/19 21:30 37.0 84 18 107/71 (83) 99 Room Air 09/03/19 21:15 76 18 107/72 (84) 99 Room Air 09/03/19 21:00 76 18 107/72 (84) 99 Room Air 09/03/19 20:45 81 18 113/75 (88) 98 Room Air 09/03/19 20:30 82 18 111/72 (85) 99 Room Air 09/03/19 20:15 86 18 111/76 (88) 99 Room Air 09/03/19 20:00 85 18 100/58 (72) 96 Room Air 09/03/19 19:45 88 18 98/55 (69) 98 Room Air 09/03/19 19:30 87 18 96/55 (69) 99 Room Air 09/03/19 19:15 81 18 98/58 (71) 99 Room Air 09/03/19 19:00 88 18 102/65 (77) 99 Room Air 09/03/19 18:45 78 18 104/66 (79) 98 Room Air 09/03/19 18:30 82 18 105/66 (79) 99 Room Air 09/03/19 18:15 83 18 111/70 (84) 99 Room Air 09/03/19 18:00 76 18 99/65 (76) 98 Room Air 09/03/19 17:45 36.6 80 18 100/55 (70) 98 Room Air 09/03/19 17:30 82 18 93/55 (68) 97 Room Air 09/03/19 17:15 74 18 103/59 (74) 98 Room Air 09/03/19 17:00 78 18 94/50 (65) 97 Room Air 09/03/19 16:45 83 18 93/56 (68) 97 Room Air 09/03/19 16:30 88 18 103/58 (73) 97 Room Air 09/03/19 16:20 86 18 106/56 (73) 98 Room Air 09/03/19 16:15 86 18 99/56 (70) 97 Room Air 09/03/19 16:10 85 18 95/59 (71) 97 Room Air 09/03/19 16:05 91 18 99/61 (74) 97 Room Air 09/03/19 11:06 36.5 90 18 97 Room Air 09/03/19 10:25 90 18 103/63 (76) Room Air 09/03/19 09:35 36.5 95 18 97 Room Air 09/03/19 09:29 36.5 95 18 110/62 (78) 97 Room Air I & O 09/04/19 06:59 Intake Total 2000 ml Balance 2000 ml Vital signs are stable. Patient is afebrile. The abdomen is benign. Fundus is firm below the umbilicus and nontender. Extreme show clubbing or cyanosis. There is no Homans sign. Assessment and plan day number 1 status post term spontaneous vaginal delivery at 38 weeks gestation. Patient is doing well will have routine convalescence care today and likely discharge home tomorrow September 05, 2019 Patient without complaint. She is ablating, voiding, tolerating oral intake well and has good pain control. Patient denies shortness breath, chest pain, nausea vomiting, headache. Patient is requesting discharge home. Vital Signs Date Time Temp Pulse Resp B/P (MAP) Pulse Ox O2 Delivery O2 Flow Rate FiO2 09/05/19 03:39 36.1 74 18 106/68 (81) 98 Room Air 09/04/19 21:30 36.7 75 18 117/73 (88) 98 Room Air 09/04/19 17:30 36.8 71 18 118/65 (82) 97 Room Air 09/04/19 12:30 36.4 70 18 106/59 (75) 98 Room Air 09/04/19 09:00 36.9 80 18 100/64 (76) 97 Room Air Vital signs are stable. Patient afebrile. Fundus is firm below the umbilicus and nontender. Extremities show no clubbing cyanosis. There is no Homans sign. Assessment and plan day number 2 status post term spontaneous vaginal delivery at 38 weeks gestation. Patient is doing well and will be discharged home with follow-up in clinic Final Diagnosis 38 week spontaneous vaginal delivery VICKY SIMMONS MD Sep 05, 2019 07:54
[2019-09-05 08:36] VITALS: BP 112/72
[2019-09-05] MEDS: DOCUSATE SODIUM 100 MG (COLACE) CAP PO SCH (08:36)
--- NOTE | 2019-09-05 10:00 | NUR ---
Discharge instructions explained, signed and copy to patient. pt verbalized understanding of instructions.
--- NOTE | 2019-09-05 12:00 | NUR ---
Discharged to home. Ambulates self downstairs with belongings in hand and to private vehicle. Accompanied by staff member.
[2019-09-09] MEDS ORDERED: IBUPROFEN 800 MG (MOTRIN) TAB PO SCH (04:00)
== END 2019-09-05 12:00 | disposition home or self-care (01) | DRG 807 ==
LOC: WSo 09:29 → LDRP 09:30 → WSo 13:45 → LDRP 13:46
PROVIDERS: ADMIT Obstetrics & Gynecology; ATTEND Obstetrics & Gynecology
PROC: 10E0XZZ Delivery of Products of Conception, External Approach (ICD-10-PCS; principal; 2019-09-03)
DX: O24.429 Gestational diabetes mellitus in childbirth, unspecified control (principal); Z37.0 Single live birth; Z3A.38 38 weeks gestation of pregnancy
CPT/HCPCS: 36415; 82947; 85025; 86850; 86900; 86901; 90707; 90715; 99212

== ENCOUNTER → 2020-11-04 | Outpatient (CLI) | payer BC, MEDICAID ==
[~2020-11-04] MED LIST changes: +DOCU-143 PO; +IBUP-1780 PO
--- NOTE | 2020-11-04 12:56 | Diagnostic Imaging Report ---
INDICATION: Routine screening. No prior mammograms are available for comparison. This a baseline study. 2-D and 3-D bilateral screening mammography was performed with CAD. Both breasts are heterogeneously dense, limiting the sensitivity of mammography. No mass or malignant-appearing microcalcifications are seen. Axillae are unremarkable. IMPRESSION: BI-RADS Category 1 No mammographic features suspicious for malignancy are identified. ACR BI-RADS Category 1: Negative. Result letter will be mailed to the patient. Note: At least 10% of breast cancer is not imaged by mammography. Dictated by: Dictated on workstation # [id number]
== END ==
LOC: RAD 09:18
PROVIDERS: ATTEND Obstetrics & Gynecology
DX: Z12.31 Encounter for screening mammogram for malignant neoplasm of breast (principal)
CPT/HCPCS: 77063; 77067

== ENCOUNTER → 2021-03-23 | Outpatient (CLI) | payer BC, MEDICAID ==
--- NOTE | 2021-03-23 10:03 | Diagnostic Imaging Report ---
PROCEDURE: US Thyroid. TECHNIQUE: Multiple Real-time grayscale images were obtained of the thyroid in various projections. INDICATION: Enlarged thyroid. FINDINGS: The right lobe measures 5.6 x 1.7 x 1.2 cm. The left lobe measures 5.2 x 1.7 x 1.6 cm. There is a simple appearing colloid cyst in the right lobe measuring 5 mm containing a single small calcification along the wall. There is normal blood flow to the thyroid. IMPRESSION: No evidence of thyroid mass. Benign-appearing colloid cyst. TI-RADS 2. Dictated by: Dictated on workstation # [id number]
== END ==
LOC: RAD 08:53
PROVIDERS: ATTEND Family Medicine
DX: E04.1 Nontoxic single thyroid nodule (principal)
CPT/HCPCS: 76536

== ENCOUNTER → 2022-05-11 | Outpatient (CLI) | payer OTHER, MEDICAID ==
--- NOTE | 2022-05-11 09:22 | Diagnostic Imaging Report ---
PROCEDURE: US Thyroid. TECHNIQUE: Multiple real-time grayscale images were obtained of the thyroid in various projections. INDICATION: Enlarged thyroid. Follow-up. COMPARISON: 03/23/2021. FINDINGS: Both thyroid lobes demonstrate smooth and homogenous background echotexture. Color flow Doppler demonstrates normal and symmetric vascularity bilaterally. The right lobe measures 5.3 cm in length, 1.6 cm AP, and 1.7 cm transverse. The left lobe measures 4.9 cm in length, 1.3 cm AP, and 1.7 cm transverse. The isthmus measures 0.2 cm. A small colloid cyst is seen in the right lobe of the thyroid measuring 0.5 cm. No suspicious focal nodules. IMPRESSION: 1. Mild thyromegaly with benign colloid cyst. Findings appear similar to the prior exam. No suspicious nodules. Dictated by: Dictated on workstation # [id number]
== END ==
LOC: RAD 07:30
PROVIDERS: ATTEND Family Medicine
DX: E04.9 Nontoxic goiter, unspecified (principal)
CPT/HCPCS: 76536